=== PATIENT | female | born 1960 | race Caucasian/White ===

== ENCOUNTER 2018-04-21 14:00 | Emergency (ER) | payer BC ==
[2018-04-21 14:24] VITALS: BP 138/81
[2018-04-21] MEDS ORDERED: Aspirin 81 mg CHEW TAB* 81 MG TAB.CHEW PO ONE (14:47)
--- NOTE | 2018-04-21 14:53 | UC ---
Cardiac HPI - HPI Summary HPI Summary: The pt is a 57 yo female with the onset 11 AM of vague flutterring and pressure in her chest Has been diaphoretic Has been SOB x months and this has not worsening no n/v neck pain right lateral since yesterday painful ROM Early in week had pro op EKG for endometrial CA surgery showed an "old heart attack" pt scheduled to see hair spring cutter next week for evaluation and was started on a baby asa Has been very anxious since she learned of abnormal EKG - History of Current Complaint Chief Complaint: UCChestPain Stated Complaint: CHEST COMPLAINT Time Seen by Provider: 04/21/18 14:33 Hx Obtained From: Patient Onset/Duration: Sudden Onset, Lasting Hours Timing: Constant Initial Severity: Mild Current Severity: Mild Pain Intensity: 3 Chest Pain Location: Upper Sternal Character: Pressure/Squeezing - Pressure/"flutterring Aggravating Factor(s): Nothing Alleviating Factor(s): Nothing Associated Signs & Symptoms: Positive: Chest Pain - pressure, SOB - chronic, Diaphoresis - Allergy/Home Medications Allergies/Adverse Reactions: Allergies Allergy/AdvReac Type Severity Reaction Status Date / Time Penicillins Allergy Unknown Verified 04/21/18 14:16 Reaction Details Opioids - Morphine Analogues AdvReac See Comment Verified 04/21/18 14:16 Home Medications: Home Medications Aspirin 81 mg CHEW TAB* [Aspirin Low Dose TAB*] 81 mg PO DAILY 04/21/18 [ History Confirmed 04/21/18] PMH/Surg Hx/FS Hx/Imm Hx Previously Healthy: Yes Endocrine History: Hypothyroidism Cancer History: Other Other Cancer History: endometrial - Surgical History Surgical History: Yes Surgery Procedure, Year, and Place: Thyroid nodule removal. Right sided lobectomy. ectopic - oophrectomy. D&C for polyp cancer removal - Family History Known Family History: Positive: Diabetes - Social History Alcohol Use: None Substance Use Type: None Smoking Status (MU): Never Smoked Tobacco Have You Smoked in the Last Year: No - Immunization History Vaccination Up to Date: Yes Review of Systems Constitutional: Negative Skin: Negative Eyes: Negative ENT: Negative Respiratory: Shortness Of Breath - chronic complaint Cardiovascular: Chest Pain Gastrointestinal: Negative Genitourinary: Negative Motor: Negative Neurovascular: Negative Musculoskeletal: Negative Neurological: Negative Psychological: Negative Is Patient Immunocompromised?: No All Other Systems Reviewed And Are Negative: Yes Physical Exam Triage Information Reviewed: Yes Appearance: Well-Appearing, No Pain Distress, Well-Nourished Vital Signs: Initial Vital Signs Temp 96.8 F 04/21/18 14:17 Pulse 76 04/21/18 14:17 Resp 18 04/21/18 14:17 BP 138/81 04/21/18 14:17 Pulse Ox 98 04/21/18 14:17 Vital Signs Reviewed: Yes Eyes: Positive: Conjunctiva Clear ENT: Positive: Hearing grossly normal, TMs normal. Negative: Nasal congestion, Nasal drainage, Trismus, Muffled voice, Hoarse voice Neck: Positive: Supple, Tenderness @ - right trapezius Respiratory: Positive: Lungs clear, Normal breath sounds, No respiratory distress, No accessory muscle use Cardiovascular: Positive: RRR, No Murmur Abdomen Description: Negative: Nontender - tender epigastium Musculoskeletal: Positive: ROM Intact, No Edema Neurological: Positive: Alert Psychological Exam: Normal Skin Exam: Normal Diagnostics - EKG Cardiac Rate: NL Ectopy: None ST Segment: Normal EKG Comparison: Other - Q's inferiorly, poor R wave progression - Assessment/Plan Course Of Treatment: Advise pt of need to go to the ER for further investiagtion of her symptoms. she declined EMS transfer. given 3 bady asa here - Clinical Impression Provider Diagnoses: chest pressure of uncertain cause. abnormal EKG Discharge - Sign-Out/Discharge Documenting (check all that apply): Patient Departure All imaging exams completed and their final reports reviewed: No Studies - Discharge Plan Condition: Stable Disposition: TRANS HIGHER LVL OF CARE FAC Referrals: Colleen Ventura [Primary Care Provider] - Additional Instructions: As discussed you have an abnormal EKG Since 11 AM you have had some fluttering in your chest as well as being sweaty Even though you have a cardiology appointment next week I think you should go to the ER to have your symptoms evaluated Please have your daughter drive you directly there You have declined a ambulance. The is a possibility that you symptoms could worsen enroute (if your symptms are due to a heart attack - Billing Disposition and Condition Condition: STABLE Disposition: Trans Higher Lvl of Care Fac
== END 2018-04-21 15:00 | disposition short-term general hospital (02) ==
LOC: UCEAST 14:00
DX: R07.89 Other chest pain (principal); R94.31 Abnormal electrocardiogram [ECG] [EKG]; E03.9 Hypothyroidism, unspecified
CPT/HCPCS: 93005; 99212; A9270-GY; G0463

== ENCOUNTER 2018-04-21 15:18 | Emergency (ER) | payer BC ==
[2018-04-21] MEDS ORDERED: Aspirin 81 mg CHEW TAB* 81 MG TAB.CHEW PO ONE (17:30)
--- NOTE | 2018-04-21 17:33 | ED ---
HPI Chest Pain - HPI Summary HPI Summary: The pt is a57 y/o female presenting to [facility] c/o of midsternal CP for two weeks worsened today. The pain described as a flutter lasts for seconds is currently rated 0/10 in intensity. She notes cough, jaw pain, SOB and anxiety but denies abd pain. The pt took ASA [employer]ESSIONAL. She was scheduled for a hysterectomy on 2017 bt was deferred due to CP. She had abnormal EKG results on 04/16/2018 and has a cardiology appointment next week. - History of Current Complaint Chief Complaint: EDChestWallPain Time Seen by Provider: 04/21/18 17:23 Hx Obtained From: Patient Onset/Duration: Started Weeks Ago - 2 weeks Timing: Intermittent Current Severity: None Pain Intensity: 0 Pain Scale Used: 0-10 Numeric Chest Pain Location: Mid Sternal Alleviating Factor(s): Medication - ASA Associated Signs and Symptoms: Positive: Chest Pain, Shortness of Breath, Other : - Positive: jaw pain and anxiety. Negative: Abdominal Pain - Allergy/Home Medications Allergies/Adverse Reactions: Allergies Allergy/AdvReac Type Severity Reaction Status Date / Time Penicillins Allergy Unknown Verified 04/21/18 15:30 Reaction Details Opioids - Morphine Analogues AdvReac See Comment Verified 04/21/18 15:30 PMH/Surg Hx/FS Hx/Imm Hx Previously Healthy: No Endocrine/Hematology History: Reports: Hx Thyroid Disease - hypo Cardiovascular History: Denies: Hx Hypertension, Hx Myocardial Infarction Sensory History: Denies: Hx Legally Blind Opthamlomology History: Denies: Hx Legally Blind - Cancer History Cancer Type, Location and Year: breast cancer 2008. endometrial cancer 2017 - Surgical History Surgery Procedure, Year, and Place: Thyroid nodule removal. Right sided lobectomy. ectopic - oophrectomy. D&C for polyp cancer removal Infectious Disease History: No Infectious Disease History: Denies: Hx Clostridium Difficile, Traveled Outside the [place] in Last 30 Days - Family History Known Family History: Positive: Cardiac Disease - CHF , Diabetes - Social History Occupation: Employed Full-time Lives: With Family Alcohol Use: None Substance Use Type: Reports: None Smoking Status (MU): Never Smoked Tobacco Have You Smoked in the Last Year: No Review of Systems Positive: Other - Positive; Jaw pain Positive: Chest Pain Positive: Shortness Of Breath Negative: Abdominal Pain Positive: Anxious All Other Systems Reviewed And Are Negative: Yes Physical Exam - Summary Physical Exam Summary: Appearance: Well appearing, no pain distress Skin: warm, dry, reflects adequate perfusion Head/face: normal Eyes: EOMI, RAKESH ENT: normal Neck: supple, non-tender Respiratory: CTA, breath sounds present Cardiovascular: RRR, pulses symmetrical Abdomen: non-tender, soft Bowel: present Musculoskeletal: normal, strength/ROM intact Neuro: normal, sensory motor intact, A&Ox3 Triage Information Reviewed: Yes Vital Signs On Initial Exam: Initial Vitals Temp Pulse Resp BP Pulse Ox 96.4 F 68 18 160/90 98 04/21/18 15:24 04/21/18 15:24 04/21/18 15:24 04/21/18 15:24 04/21/18 15:24 Vital Signs Reviewed: Yes Diagnostics - Vital Signs Vital Signs Temp Pulse Resp BP Pulse Ox 04/21/18 15:24 96.4 F 68 18 160/90 98 - Laboratory Result Diagrams: 04/21/18 17:18 04/21/18 17:18 Lab Statement: Any lab studies that have been ordered have been reviewed, and results considered in the medical decision making process. - Radiology CXR Radiology Interpretation Completed By: Radiologist - IMPRESSION: No radiographic evidence for acute cardiopulmonary abnormality on this portable chest x-ray. The ED physician reviewed this radiology report. - EKG 16:11 Cardiac Rate: NL - 69 bpm EKG Interpretation: No acute changes Chest Pain Course/Dx - Course Course Of Treatment: A 57 year-old M/F presents to the ED with a CC of midsternal CP for two weeks worsened today. The pain described as a flutter lasts for seconds is rated 0/10 in intensity. She notes cough, jaw pain, SOB and anxiety but denies abd pain. The pt took ASA [employer]AL. She was scheduled for a hysterectomy on 04/11/2018 bt was deferred due to CP. She had abnormal EKG results on 04/16/2018 and has a cardiology appointment next week. A physical exam is unremarkable. A CXR reveals is unremarkable. An EKG is unremarkable. In the ED course, pt was given ASA 324 mg PO which improved the symptoms. Patient will be discharged with a final Dx of Chest Pain. The pt is going for a stress test next Tuesday04/26/2018. ACS not present currently. The pt is agreeable with this plan. Two troponins are negative patient has no pain at present maybe she has anxiety so we will discharge him and advised to get a stress test next week and follow up with primary care and if symptoms recur. Come back to the emergency room - Chest Pain Differential Diagnosis/HQI/PQRI: Angina, Chest Wall, Lower Respiratory Infection - Diagnoses Provider Diagnoses: Chest pain Discharge - Sign-Out/Discharge Documenting (check all that apply): Patient Departure - DC - Discharge Plan Condition: Stable Disposition: HOME Patient Education Materials: Chest Pain (ED) Referrals: Colleen Ventura [Primary Care Provider] - 3 Days Additional Instructions: Follow up with PCP in 3 days. Return to ED for any new or worsening symptoms - Billing Disposition and Condition Condition: STABLE Disposition: Home - Attestation Statements Document Initiated by Catyibe: Yes Documenting Scribe: Argentina Valero Provider For Whom Catyibe is Documenting (Include Credential): Dr. Betito Del Rosario MD Scribe Attestation: Argentina Del Rosario , scribed for Dr. Betito Del Rosario MD on 04/22/18 at 0733. Scribe Documentation Reviewed: Yes Provider Attestation: The documentation as recorded by the Argentina baca accurately reflects the service I personally performed and the decisions made by , Dr. Betito Del Rosario MD
[2018-04-21 17:39] LABS: ABS Basophils 0.1 10^3/ul (0-0.2); ABS Eosinophils 0.1 10^3/ul (0-0.6); ABS Lymphocytes 2.4 10^3/ul (1.0-4.8); ABS Monocytes 0.8 10^3/ul (0-0.8); ABS Neutrophils 4.1 10^3/ul (1.5-7.7); ABS Nucleated RBC 0 10^3/ul; Eosinophil % 1.7 % (0-6); Hematocrit 42 % (35-47); Hemoglobin 14.1 g/dl (12.0-16.0); Lymphocyte % 32.3 % (25-47); Mean Corpuscular HGB Conc 34 g/dl (31-36); Mean Corpuscular Hemoglobin 29 pg (27-31); Mean Corpuscular Volume 86 fL (80-97); Mean Platelet Volume 9.9 um3 (7.4-10.4); Nucleated Red Blood Cells % 0.1; Platelet Count 187 10^3/ul (150-450); Red Blood Count 4.85 10^6/ul (4.00-5.40); Red Cell Distribution Width 15 % (10.5-15); White Blood Count 7.5 10^3/ul (3.5-10.8)
[2018-04-21 17:47] LABS: INR 0.89 (0.77-1.02)
[2018-04-21 17:56] LABS: EGFR Non-African American 90.4 (>60)
--- NOTE | 2018-04-21 18:00 | RAD ---
INDICATION: Chest pain COMPARISON: Most recent comparison chest x-rays dated July 21, 2007 TECHNIQUE: Single AP portable view of the chest was obtained. FINDINGS: Image quality is compromised due to the relative inferiority of a portable chest x-ray. The heart and mediastinum exhibit normal size and contour. The lungs are grossly clear. There is no evidence of a large pleural effusion. Visualized bones are normal for the patient's age. IMPRESSION: No radiographic evidence for acute cardiopulmonary abnormality on this portable chest x-ray.
[2018-04-21 22:16] VITALS: BP 120/83
== END 2018-04-21 22:16 | disposition home or self-care (01) ==
LOC: ED 15:18
DX: R07.89 Other chest pain (principal); R06.02 Shortness of breath; R68.84 Jaw pain; F41.9 Anxiety disorder, unspecified; Z88.5 Allergy status to narcotic agent; Z88.0 Allergy status to penicillin; Z82.49 Family history of ischemic heart disease and other diseases of the circulatory system; Z83.3 Family history of diabetes mellitus
CPT/HCPCS: 36415; 71045; 80053; 83880; 84484; 85025; 85379; 85610; 85730; 93005; 99283

== ENCOUNTER 2018-05-25 10:53 | Emergency (ER) | payer BC ==
--- OUTSIDE RECORDS SUMMARY | 2018-05-25 10:58 | XMS REPORT ---
:1960 External Reference #:[id number] Author Organization [facility] Address [address] [place] [address] [place] [address] Phone [phone] Care Team Providers Name Role Phone Colleen Ventura, FOZIA Care Team Information Community Health Program Coordinator Unavailable Colleen Ventura, TILE LAYER HELPER Primary Care Physician Unavailable Payers Type Date Identification Numbers Payment Provider Subscriber Health Maintenance Policy Number: [facility] Sameer Rivera [facility] ([facility] [place] [id number] PayID: [id number] [place] [id number] Problems Date Description Provider Status Onset: 04/26/2018 Palpitations Alexandru Tello M.D., [facility] Active Onset: 04/26/2018 Chest pain Alexandru Tello M.D., [facility] Active Family History Date Family Member(s) Problem(s) Comments General heart trouble, cancer and diabetes in immediate family Father Multiple Myeloma Mother Diabetes Mother Thyroid Disease Social History Type Date Description Comments Marital Status Lives With Occupation self employed graphic design artist ETOH Use Denies alcohol use Smoking Patient has never smoked Recreational Drug Use Denies Drug Use Daily Caffeine Consumes on average 2 cups of hot tea per day Exercise Type/Frequency Does not exercise Allergies, Adverse Reactions, Alerts Date Description Reaction Status Severity Comments 01/16/2016 Penicillin active Medications Medication Date Status Form Strength Qnty SIG Indications Ordering Provider Aspirin Adult Active Tablets DR 81mg 1 by Unknown Low Dose 000 mouth every day No Active Hx Unknown Medications 018 - 018 Multi Complete Hx Capsules daily Unknown 000 - 018 Vitamin D3 Hx 1 chew Unknown 000 - by mouth once a 018 day Calcium 500 + D Hx Tablets 1 by Unknown 000 - mouth twice a 018 day Vital Signs Date Vital Result Comment 04/26/2018 Height 62 inches 5'2" Weight 244.00 lb Heart Rate 68 /min BP Systolic Sitting 142 mmHg lue lg cuff BP Diastolic Sitting 80 mmHg lue lg cuff BP Systolic Standing 144 mmHg BP Diastolic Standing 82 mmHg Respiratory Rate 18 /min BMI (Body Mass Index) 44.6 kg/m2 01/16/2016 Height 62 inches 5'2" Weight 240.00 lb Heart Rate 74 /min BP Systolic 132 mmHg BP Diastolic 89 mmHg Pain Level 6 BMI (Body Mass Index) 43.9 kg/m2 Results Description No Information Procedures Date CPT Code Description Status 04/26/2018 79943 EKG Tracing & Interpretation Completed Encounters Type Date Location Provider CPT E/M Dx Office Visit 04/26/2018 [facility] Alexandru Tello, 25456 R07.9 9:45a Claudine Chua, FACR[place], ALLA R00.2 Office Visit 01/16/2016 10:00a [facility], [address] M72.2 C.M.A. MRonelD. Plan of Care Future Appointment(s):05/25/2018 10:00 am - [facility]ca ECHO Schedule at [facility]05/24/2018 1:30 pm - Ica Nuclear Schedule at [facility]05/22/2018 11:15 am - Alexandru Tello M.D., FACC, FASJUAN at [facility]04/26/2018 - Alexandru Tello M.D., FACR[place], [id number] Chest pain, unspecifiedNew Orders:Stress Test, Pharmacologic Nuclear (Lexiscan) EchocardiogramComments:As discussed, we will further evaluate your heart. Please stop all caffeine ingestion.R00.2 PalpitationsNew Orders:[facility] TelemetryFollow up:after cardiac testing.
[2018-05-25 11:30] VITALS: BP 148/104
[2018-05-25] MEDS ORDERED: Famotidine TAB* 20 MG PO ONE (12:34)
--- NOTE | 2018-05-25 12:34 | UC ---
Skin Complaint HPI - HPI Summary HPI Summary: 57-year-old woman comes in with complaint of lower lip swelling. This started this morning about 8:30 while she was driving. She has noticed swelling is not short of breath but difficulty swallowing no hives anywhere else on her body. She takes an aspirin every morning she did not eat anything else this morning. She also uses mouthwash every morning. This same swelling occurred one week ago and her upper lip and went away after a day. She is not on any other medications. She did try some ice which did not seem to help. - History of Current Complaint Chief Complaint: UCSkin Time Seen by Provider: 05/25/18 12:16 Stated Complaint: SWOLLEN LIP Pain Intensity: 2 - Allergy/Home Medications Allergies/Adverse Reactions: Allergies Allergy/AdvReac Type Severity Reaction Status Date / Time Penicillins Allergy Unknown Verified 05/25/18 11:30 Reaction Details Opioids - Morphine Analogues AdvReac See Comment Verified 05/25/18 11:30 Review of Systems Constitutional: Negative Skin: Other - SEE HPI Eyes: Negative ENT: Other - SEE HPI Respiratory: Negative Cardiovascular: Negative Gastrointestinal: Negative Motor: Negative Neurovascular: Negative Musculoskeletal: Negative Neurological: Negative Psychological: Negative Is Patient Immunocompromised?: No All Other Systems Reviewed And Are Negative: Yes PMH/Surg Hx/FS Hx/Imm Hx Previously Healthy: Yes - Surgical History Surgical History: Yes Surgery Procedure, Year, and Place: Thyroid nodule removal. Right sided lobectomy. ectopic - oophrectomy. D&C for polyp cancer removal - Family History Known Family History: Positive: Cardiac Disease - CHF , Diabetes - Social History Alcohol Use: None Substance Use Type: None Smoking Status (MU): Never Smoked Tobacco Have You Smoked in the Last Year: No - Immunization History Vaccination Up to Date: Yes Physical Exam Triage Information Reviewed: Yes Completion Of Physical Exam Limited Due To: Extremis Appearance: No Pain Distress, Well-Nourished Vital Signs: Initial Vital Signs Temp 97.7 F 05/25/18 11:23 Pulse 71 05/25/18 11:23 Resp 18 05/25/18 11:23 BP 148/104 05/25/18 11:23 Pulse Ox 98 05/25/18 11:23 Vital Signs Reviewed: Yes Eye Exam: Normal Eyes: Positive: Conjunctiva Clear ENT: Positive: Pharynx normal, Uvula midline, Other - There is swelling in the lower lip primarily on the left side. There is no swelling of the tongue the oropharynx is open the uvula is midline.. Negative: Tonsillar swelling, Tonsillar exudate, Trismus, Muffled voice, Hoarse voice Neck exam: Normal Neck: Positive: Supple Respiratory Exam: Normal Respiratory: Positive: Lungs clear, Normal breath sounds, No respiratory distress Cardiovascular Exam: Normal Cardiovascular: Positive: RRR Musculoskeletal Exam: Normal Musculoskeletal: Positive: Strength Intact, ROM Intact Neurological Exam: Normal Neurological: Positive: Alert Psychological Exam: Normal Psychological: Positive: Age Appropriate Behavior Skin Exam: Normal Course/Dx - Course Course Of Treatment: We discussed the possible causes of her swollen lip. At this time the swelling is limited to the lower lip. No evidence of any airway compromise. The plan is Benadryl Pepcid and prednisone. If she is worsens she will go to the emergency department. - Diagnoses Provider Diagnoses: ANGIOEDEMA LOWER LIP Discharge - Sign-Out/Discharge Documenting (check all that apply): Patient Departure All imaging exams completed and their final reports reviewed: No Studies - Discharge Plan Condition: Stable Disposition: HOME Prescriptions: Famotidine TAB* [Pepcid 20 MG TAB*] 40 mg PO BID PRN #10 tab PRN Reason: Allergy Symptoms predniSONE TAB* [Deltasone 20 MG TAB*] 40 mg PO DAILY #10 tab Patient Education Materials: Angioedema (ED) Referrals: Colleen Ventura [Primary Care Provider] - - Billing Disposition and Condition Condition: STABLE Disposition: Home
== END 2018-05-25 12:53 | disposition home or self-care (01) ==
LOC: UCEAST 10:53
DX: T78.3XXA Angioneurotic edema, initial encounter (principal); Z88.0 Allergy status to penicillin; Z88.5 Allergy status to narcotic agent; X58.XXXA Exposure to other specified factors, initial encounter; Y92.9 Unspecified place or not applicable
CPT/HCPCS: 99212; A9270-GY; G0463